=== PATIENT | female | born 1995 | race Caucasian/White ===

== ENCOUNTER 2017-10-01 19:38 | Emergency (ER) | payer BC, OTHER ==
[2017-10-01 20:01] VITALS: BP 117/68
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
[2017-10-01] MEDS ORDERED: Ketorolac INJ* 60 MG/2 ML VIAL IM ONE (20:14)
[2017-10-01] MEDS ORDERED: SUMAtriptan TAB* 100 MG PO ONE (20:48)
[2017-10-01] MEDS ORDERED: SUMAtriptan SQ* 6 MG/0.5 ML VIAL SUBCUT ONE (20:57)
== END 2017-10-01 21:51 | disposition home or self-care (01) ==
LOC: UCCORT 19:38
DX: S00.93XA Contusion of unspecified part of head, initial encounter (principal); W20.8XXA Other cause of strike by thrown, projected or falling object, initial encounter; Y93.9 Activity, unspecified; Y92.9 Unspecified place or not applicable; G43.809 Other migraine, not intractable, without status migrainosus; Z72.89 Other problems related to lifestyle
CPT/HCPCS: 96372; 99212; A9270-GY; G0463; J1885; J3030

== ENCOUNTER 2017-12-13 14:48 | Emergency (ER) | payer OTHER ==
[2017-12-13 15:27] VITALS: BP 109/68
--- NOTE | 2017-12-13 15:40 | ED ---
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 The symptoms have completely resolved. She has no more pain. No numbness or neurologic symptoms. - History of Current Complaint Chief Complaint: UCBackPain Stated Complaint: BACK INJURY - W/C Time Seen by Provider: 12/13/17 15:33 Hx Obtained From: Patient Hx Last Menstrual Period: 10/22/17 Onset/Duration: Gradual Onset, Lasting Weeks, Resolved Onset/Duration: Traumatic, Resolved Severity Initially: Moderate Severity Currently: None Pain Intensity: 0 Character: Dull, Aching, Stiffness Aggravating Symptom(s): Nothing Alleviating Symptom(s): Nothing Associated Signs And Symptoms: Positive: Negative Related History: Occupational Injury - Allergies/Home Medications Allergies/Adverse Reactions: Allergies Allergy/AdvReac Type Severity Reaction Status Date / Time No Known Allergies Allergy Verified 12/13/17 15:24 Home Medications: Home Medications Vit37/Iron/Folic Acid [Prenata] 1 chw PO DAILY 12/13/17 [History Confirmed 12/13/17] PMH/Surg Hx/FS Hx/Imm Hx Previously Healthy: Yes - Surgical History Hx Anesthesia Reactions: No - No prior back surgery. Infectious Disease History: No Infectious Disease History: Denies: Traveled Outside the [place] in Last 30 Days - Social History Occupation: Employed Full-time Alcohol Use: None Substance Use Type: Reports: None Smoking Status (MU): Never Smoked Tobacco Review of Systems All Other Systems Reviewed And Are Negative: Yes Physical Exam Triage Information Reviewed: Yes Vital Signs On Initial Exam: Initial Vitals Temp Pulse Resp BP Pulse Ox 98.3 F 65 16 109/68 100 12/13/17 15:21 12/13/17 15:21 12/13/17 15:21 12/13/17 15:21 12/13/17 15:21 Vital Signs Reviewed: Yes Appearance: Positive: Well-Appearing, No Pain Distress, Well-Nourished Skin: Positive: Warm Head/Face: Positive: Normal Head/Face Inspection Eyes: Positive: Normal, EOMI ENT: Positive: Normal ENT inspection Neck: Negative: Nuchal Rigidity Respiratory/Lung Sounds: Negative: Unable to speak in full sentences, Fatigue Abdomen Description: Positive: No Organomegaly. Negative: CVA Tenderness (R), CVA Tenderness (L), Distended, Guarding Musculoskeletal: Positive: Strength/ROM Intact. Negative: Edema Left, Edema Right Neurological: Positive: Sensory/Motor Intact, Alert, Oriented to Person Place, Time Psychiatric: Positive: Normal Diagnostics - Vital Signs Vital Signs Temp Pulse Resp BP Pulse Ox 12/13/17 15:21 98.3 F 65 16 109/68 100 - Laboratory Lab Statement: Any lab studies that have been ordered have been reviewed, and results considered in the medical decision making process. Back Pain Course/Dx - Diagnoses Provider Diagnoses: Low back strain Discharge - Sign-Out/Discharge Documenting (check all that apply): Discharge - Discharge Plan Condition: Good Disposition: HOME Patient Education Materials: Low Back Strain (ED) Forms: *Work Release Referrals: Non Staff,Doctor [Primary Care Provider] - - Billing Disposition and Condition Condition: GOOD Disposition: HOME
== END 2017-12-13 15:47 | disposition home or self-care (01) ==
LOC: MERGE 14:48 → UCCORT 14:48
DX: S39.012A Strain of muscle, fascia and tendon of lower back, initial encounter (principal); X50.0XXA Overexertion from strenuous movement or load, initial encounter; Y93.89 Activity, other specified; Y92.89 Other specified places as the place of occurrence of the external cause; Y99.0 Civilian activity done for income or pay
CPT/HCPCS: 99201; G0463

== ENCOUNTER 2019-01-21 21:00 | Emergency (ER) | payer OTHER ==
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
[2019-01-21 21:33] VITALS: BP 109/75
--- NOTE | 2019-01-22 08:22 | UC ---
- Progress Note Progress Note: xray cervical spine: IMPRESSION: NO EVIDENCE FOR FRACTURE OR SUBLUXATION. Course/Dx - Diagnoses Provider Diagnoses: Neck strain Discharge - Sign-Out/Discharge Documenting (check all that apply): Patient Departure All imaging exams completed and their final reports reviewed: Yes - Discharge Plan Condition: Stable Disposition: HOME Prescriptions: Cyclobenzaprine TAB* [Flexeril 10 MG TAB*] 10 mg PO TID PRN #21 tab PRN Reason: Pain Patient Education Materials: Cervical Strain (ED) Forms: *Work Release Referrals: Nikoali Burk MD [Medical Doctor] - Additional Instructions: If you develop a fever, shortness of breath, chest pain, new or worsening symptoms - please call your PCP or go to the ED immediately. 1) I suspect your neck pain is due to a muscle strain/spasm. 2) Please rest and apply heat to the area. May continue taking ibuprofen or naproxen as directed. PLEASE CALL YOUR OBGYN BEFORE TAKING THE FLEXERIL TO ASK IF THIS IS OK TO TAKE WITH 3) I suspect your symptoms will improve within 5-7 days. If they do not, please be rechecked. - Billing Disposition and Condition Condition: STABLE Disposition: Home
== END 2019-01-21 21:55 | disposition home or self-care (01) ==
LOC: UCCORT 21:00
DX: S16.1XXA Strain of muscle, fascia and tendon at neck level, initial encounter (principal); W51.XXXA Accidental striking against or bumped into by another person, initial encounter; Y92.169 Unspecified place in school dormitory as the place of occurrence of the external cause; Y99.0 Civilian activity done for income or pay; F41.9 Anxiety disorder, unspecified; F32.9 Major depressive disorder, single episode, unspecified
CPT/HCPCS: 72050; 99212; G0463

== ENCOUNTER 2019-10-02 21:27 | Emergency (ER) | payer BC, OTHER ==
[2019-10-02] MEDS ORDERED: NS 0.9% 1000 ML** 1,000 ML IV ONE (21:44)
--- NOTE | 2019-10-02 21:49 | ED ---
HPI Chest Pain - HPI Summary HPI Summary: 24-year-old male presents with intermittent chest pain today. She states that she is short of breath. Has also had a cough. She denies any fevers. She admits to some abdominal pain and nausea. Pain is in the center chest. She states it is a tightness. She's never had this pain before. She is nonsmoker. Denies any drug use. She is on the Mirena. She denies any recent travel. No family history of blood clots. Denies any pain or swelling in her calf muscles. She denies any family history of MIs. - History of Current Complaint Time Seen by Provider: 10/02/19 21:31 Hx Last Menstrual Period: 08/26/17 - Allergy/Home Medications Allergies/Adverse Reactions: Allergies Allergy/AdvReac Type Severity Reaction Status Date / Time No Known Allergies Allergy Verified 01/21/19 21:26 PMH/Surg Hx/FS Hx/Imm Hx Endocrine/Hematology History: Denies: Hx Diabetes Cardiovascular History: Denies: Hx Congestive Heart Failure, Hx Hypertension Respiratory History: Reports: Hx Asthma - sports induced Denies: Hx Chronic Obstructive Pulmonary Disease (COPD) GI History: Denies: Other GI Disorders History: Denies: Hx Renal Disease, Other Problems/Disorders Psychiatric History: Reports: Hx Anxiety, Hx Depression - Surgical History Surgery Procedure, Year, and Place: UTERINE POLYP REMOVED Hx Anesthesia Reactions: No - No prior back surgery. Infectious Disease History: Denies: Hx Hepatitis - Family History Known Family History: Positive: None, Diabetes - Social History Alcohol Use: None Substance Use Type: Reports: None Smoking Status (MU): Never Smoked Tobacco Have You Smoked in the Last Year: No Review of Systems Negative: Fever Positive: Chest Pain Positive: Shortness Of Breath, Cough Negative: Abdominal Pain All Other Systems Reviewed And Are Negative: Yes Physical Exam Triage Information Reviewed: Yes Vital Signs Reviewed: Yes Appearance: Positive: Well-Appearing Skin: Positive: Warm, Dry Head/Face: Positive: Normal Head/Face Inspection Eyes: Positive: Normal, EOMI, JAZIEL, Conjunctiva Clear ENT: Positive: Normal ENT inspection, Pharynx normal, TMs normal Respiratory/Lung Sounds: Positive: Clear to Auscultation, Breath Sounds Present , Other - reproducible chest pain Cardiovascular: Positive: Normal, RRR Abdomen Description: Positive: Nontender, Soft Bowel Sounds: Positive: Present Musculoskeletal: Positive: Normal Neurological: Positive: Normal Psychiatric: Positive: Normal Procedures - Sedation Patient Received Moderate/Deep Sedation with Procedure: No Diagnostics - Laboratory Result Diagrams: 10/02/19 21:58 10/02/19 21:58 Lab Statement: Any lab studies that have been ordered have been reviewed, and results considered in the medical decision making process. - Radiology chest Radiology Interpretation Completed By: ED Physician Summary of Radiographic Findings: no active disease - EKG No standard instances Cardiac Rate: Tachycardia EKG Rhythm: Sinus Tachycardia Summary of EKG Findings: sinus tachycardia Re-Evaluation - Re-Evaluation First Eval Re-Evaluation Time: 11:05 Change: Improved Comment: feeling better with toradol but still has pain Second Eval Re-Evaluation Time: 01:15 Comment: feeling better ativan, second troponin is negative. Chest Pain Course/Dx - Course Course Of Treatment: 24-year-old male presents with intermittent chest pain today. She states that she is short of breath. Has also had a cough. She denies any fevers. She admits to some abdominal pain and nausea. Pain is in the center chest. She states it is a tightness. She's never had this pain before. She is nonsmoker. Denies any drug use. She is on the Mirena. She denies any recent travel. No family history of blood clots. Denies any pain or swelling in her calf muscles. She denies any family history of MIs. On exam has reproducible chest pain. Hyperventilating and tearful. Lungs clear to auscultation. Abdomen soft nontender. ekg sinus tachycardia. wbc normal. D -dimer normal. Troponin 0. Lactic elevated likely due to hyperventilation. heart score 2. chest xray normal. gave toradol and ativan and feeling better. discussed likely chest wall pain. will have follow up with [facility]. patient understand and agrees with plan. - Chest Pain Differential Diagnosis/HQI/PQRI: Angina, Chest Wall, Pulmonary Embolism - Diagnoses Provider Diagnoses: Chest wall pain Discharge ED - Sign-Out/Discharge Documenting (check all that apply): Patient Departure - Discharge Plan Condition: Good Disposition: HOME Patient Education Materials: Chest Wall Pain (ED) Referrals: [facility] [place] [facility] [Outside] Additional Instructions: Take ibuprofen or Tylenol every 6 hours as needed for pain Follow up with [facility] within 5 days Return to ED if develop any new or worsening symptoms - Billing Disposition and Condition Condition: GOOD Disposition: Home
[2019-10-02] MEDS ORDERED: Ketorolac INJ* 30 MG/ML 1 ML VIAL IV PUSH ONE (22:06)
[2019-10-02 22:19] LABS: ABS Lymphocytes 0.6 10^3/ul (1.0-4.8); ABS Monocytes 0.3 10^3/ul (0-0.8); ABS Neutrophils 6.7 10^3/ul (1.5-7.7); Eosinophil % 0.6 %; Hematocrit 39 % (35-47); Hemoglobin 13.8 g/dL (12.0-16.0); Lymphocyte % 7.7 %; Mean Corpuscular HGB Conc 35 g/dL (31-36); Mean Corpuscular Hemoglobin 33 pg (27-31); Mean Corpuscular Volume 93 fL (80-97); Mean Platelet Volume 7.6 fL (7.4-10.4); Platelet Count 235 10^3/uL (150-450); Red Blood Count 4.21 10^6 /uL (3.70-4.87); Red Cell Distribution Width 13 % (10-15); White Blood Count 7.7 10^3/uL (3.5-10.8)
[2019-10-02 22:32] LABS: Albumin 4.1 g/dL (3.2-5.2); C Reactive Protein 5.02 mg/L (<8.01); Calcium 8.4 mg/dL (8.6-10.3); EGFR African American 133.3 (>60); EGFR Non-African American 110.2 (>60); Globulin 2.1 g/dL (2-4); Potassium 3.3 mmol/L (3.5-5.0); Total Protein 6.2 g/dL (6.4-8.9)
[2019-10-02] MEDS ORDERED: Lorazepam PYXIS KEY PRN (23:04)
[2019-10-02] MEDS ORDERED: LORazepam INJ* 2 MG/ML 1 ML VIAL IV PUSH ONE (23:04)
[2019-10-02] MEDS ORDERED: Lorazepam PYXIS KEY ONE (23:35)
[2019-10-02 23:36] LABS: Influenza A Molecular NEGATIVE (Negative); Influenza B Molecular NEGATIVE (Negative)
[2019-10-03 01:15] VITALS: BP 110/73
== END 2019-10-03 01:35 | disposition home or self-care (01) ==
LOC: ED 21:27
DX: R07.89 Other chest pain (principal); F41.9 Anxiety disorder, unspecified; F32.9 Major depressive disorder, single episode, unspecified
CPT/HCPCS: 36415; 71046; 80053; 83605; 84484; 85025; 85379; 86140; 93005; 96361; 96374; 96375; 99284; J1885; J2060